=== PATIENT | female | born 1985 ===

== ENCOUNTER 2025-09-20 10:00 | Day surgery (SDC) | payer OTHER ==
[2025-09-07 12:14] VITALS: BP 96/72
[~2025-09-20] VITALS: Ht 160 cm; Wt 71.7 kg
[~2025-09-20 10:00] MED LIST: CEFOXITIN SODIUM 2,000 MG VIAL IV ONE; LEXAPRO20 MG PO
[2025-09-20] MEDS ORDERED: DOXYCYCLINE HY100 M3 PO (10:12)
[2025-09-20] MEDS ORDERED: NAPR500T14 PO (10:12)
[2025-09-20] MEDS ORDERED: PROMETHAZINE HCL 50 MG/ML AMPUL IM ONE (10:15)
[2025-09-20] MEDS ORDERED: MORPHINE SULFATE 4 MG/ML VIAL IV PRN (10:15)
== END 2025-09-20 14:15 | disposition home or self-care (01) ==
LOC: CIR.AMB 10:00
PROVIDERS: ATTEND Obstetrics & Gynecology
DX: D25.0 Submucous leiomyoma of uterus (principal); N84.0 Polyp of corpus uteri; N80.03 Adenomyosis of the uterus; N92.1 Excessive and frequent menstruation with irregular cycle